=== PATIENT | male | born 1985 | race Caucasian/White ===

== ENCOUNTER → 2023-11-01 17:08 | Outpatient (REF) | payer OTHER, SELFPAY | LOC: RAD 17:08 | DX: R05.9 Cough, unspecified (principal) | CPT/HCPCS: 71046 ==

== ENCOUNTER 2023-11-07 19:33 | Emergency (ER) | payer OTHER, SELFPAY ==
[2023-11-07 19:35] VITALS: BP 134/89; BMI 17.3
[2023-11-07 21:36] VITALS: BP 123/87
--- NOTE | 2023-11-09 09:31 | ED.GENMED ---
History of Present Illness
General
Chief Complaint: Allergic Reaction
Source: patient
Exam Limitations: none
Time Seen by Provider: 11/07/23 20:13
Nursing documentation reviewed up to this point in time: agreed with
History of Present Illness
History of Present Illness:
38 yo male who self administered his third dose of SQ Dupixent in outer left thigh and noted immediate local swelling that has since subsided. Later, he was outside in the heat in his garden and when he came in, looked in mirror and noted two red
raised areas like welts on frontal scalp (pt has shaved head/bald), he called his cook fruit who suggested he come to ED for evaluation. The skin is now back to normal.
Past History
Past History
ED Past Medical History: GERD
ED Past Surgical History: None
Social History
Tobacco: Non-smoker
Personal: Single
Living: alone (lives in [facility])
Employment: Student
Review of Systems
Review of Systems
Allergies reviewed?: Yes
All Other Systems: ROS reviewed and negative except as documented in HPI and ROS
Constitutional: Reports weight loss; Denies fever
EENT: Denies mouth swelling
Respiratory: Denies trouble breathing
Cardiac: Denies chest pain
ABD/GI: Reports abdominal pain (chronic, 5 months, with weight loss, followed by GI Dr. Juni Joseph, has appt in 4 days); Denies nausea, vomiting, bloody stools or black stools
Musculoskeletal: Reports no symptoms
Skin: Reports no symptoms
Neurological: Reports no symptoms
Phy Exam
General Physical Exam
General Presentation: no apparent distress and other (Appears thin)
General age: appears stated age
General Skin: warm and dry
General Mental: alert
General Hydration: appears well hydrated
ENT Exam
ENT Exam: pharynx normal
Eye Exam
Eye Exam: conjunctiva normal
Cardiovascular Exam
Cardiovascular Exam: regular rate/rhythm
Heart Sounds: normal
Pulmonary Exam
Pulmonary Exam: lungs clear
Gastrointestinal Exam
Gastrointestinal Exam: normal bowel sounds, non tender and soft
Neurological Exam
Neurological Exam: alert and normal gait
Musculoskeletal Exam
Musculoskeletal Exam: joint swelling
Skin Exam
Skin Exam: normal color, warm/dry, no rash and other (Lateral left thigh has tiny injection melba, no swelling or tenderness, faint ecchymosis noted.)
Psychiatric Exam
Psychiatric Exam: anxious (concerned about why he's losing weight, what is causing his chronic abdominal symptoms)
Course
Vital Signs
Initial and Last Documented VS:
Initial Vital Signs
Temp Pulse Resp BP Pulse Ox
98.5 F 94 14 134/89 99
11/07/23 19:35 11/07/23 19:35 11/07/23 19:35 11/07/23 19:35 11/07/23 19:35
Last Documented Vital Signs
Temp Pulse Resp BP Pulse Ox
98.1 F 81 18 123/87 99
11/07/23 21:36 11/07/23 21:36 11/07/23 21:36 11/07/23 21:36 11/07/23 21:36
MDM/Problems Addressed
Differential Diagnosis Includes:
bug bites, allergic reaction
local irritation from injection
MDM/Problems Addressed:
38 yo male who self administered his third dose of SQ Dupixent in outer left thigh and noted immediate local swelling that has since subsided. Later, he was outside in the heat in his garden and when he came in, looked in mirror and noted two red
raised areas like welts on frontal scalp (pt has shaved head/bald), he called his cook fruit who suggested he come to ED for evaluation. The skin is now back to normal.
Pt exam is unremarkable save for his thin appearance
He expresses much anxiety about his wt loss and abdominal pain. No indication for abd pain workup as this is not new and he is followed by his GI doctor in [facility] and has appointment in 4 days.
Scalp welts are gone, no sign of significant allergic reaction
Lateral left thigh faint ecchymosis at injection site, most likely disrupted a superficial blood vessel during injection.
*Critical Care Note
Total Time (30-74mins, 75-104mins- exclusive of procedures): Not Applicable
ED Attending Note
-
Portions of this chart may have been created with voice recognition software.� Occasional wrong word or��sound alike� substitutions may have occurred due to the inherent limitations of voice recognition software.
Discharge Plan
Departure
Patient Disposition: Home (Routine Discharge)
Date of Disposition: 11/07/23
Time of Disposition: 21:25
Patient with high blood pressure during this ER visit?: No
Condition: Good
Discharge Problem:
Bruising at injection site, Localized hives
Instructions: Taking care of bruises, Hives (DC)
Referrals:
Your, Doctor in [place] [Other] - Keep scheduled appt
UNKNOWN - PT DOES,NOT KNOW [Family Provider] -
Activity Restrictions/Additional Instructions:
As we discussed, the injection site may become bruised over the next few days. You most likely disrupted a small superficial blood vessel when you gave yourself the injection. This is nothing worrisome.
The 2 hives that appeared on your forehead may be from the heat in your garden, since they have resolved, nothing further needs to be done at this point
Interventions
Interventions:
*Risk Screen - Suicide Last Done: 11/07/23 19:35
*General Assessment Last Done: 11/07/23 21:35
*Neglect/Abuse Screening Last Done: 11/07/23 19:35
ED- Fall Risk Assessment Last Done: 11/07/23 19:51
*ED COVID-19 Vaccine History Last Done: 11/07/23 21:35
*Nursing Disposition Last Done: 11/07/23 21:36
ED- Cardiac Assessment Last Done: 11/07/23 19:51
ED- Pulmonary Assessment Last Done: 11/07/23 19:51
ED-Skin Assessment Last Done: 11/07/23 19:51
Discharge Date and Time
Discharge Date/Time: 11/07/23 21:36
Print Language: ALBANIAN
== END 2023-11-07 21:36 | disposition home or self-care (01) ==
LOC: EMR 19:33
PROVIDERS: EMERGENCY PHYSICIAN Emergency Medicine
DX: L50.9 Urticaria, unspecified (principal); S70.12XA Contusion of left thigh, initial encounter; W46.0XXA Contact with hypodermic needle, initial encounter; F41.9 Anxiety disorder, unspecified; R10.9 Unspecified abdominal pain; Z88.1 Allergy status to other antibiotic agents; Z91.018 Allergy to other foods; Z91.010 Allergy to peanuts; Z88.8 Allergy status to other drugs, medicaments and biological substances
CPT/HCPCS: 99282